=== PATIENT | female | born 1995 | race African-American/Black ===

== ENCOUNTER 2017-01-05 15:26 | Emergency (ER) | payer OTHER | END 2017-01-05 17:03 | disposition home or self-care (01) | LOC: FER 15:26 | DX: J02.9 Acute pharyngitis, unspecified (principal) | CPT/HCPCS: 87450; 99283 ==

== ENCOUNTER 2017-01-07 15:21 | Emergency (ER) | payer OTHER | END 2017-01-07 17:02 | disposition home or self-care (01) | LOC: FER 15:21 | DX: J35.1 Hypertrophy of tonsils (principal) | CPT/HCPCS: 86308; 87450; 87804; 87899; 99283 ==

== ENCOUNTER 2017-01-09 05:30 | Emergency (ER) | payer OTHER ==
[2017-01-09 06:21] LABS: BASOPHIL 0.2 % (0-2); EOSINOPHIL 0 % (0-5); HCT 35.3 % (37.0-47.0); HGB 11.9 g/dl (12.5-16.0); LYMPHOCYTE 16.5 % (15-48); MCHC 33.7 g/dL (32.0-36.0); MCV 77.2 fL (78.0-100.0); MONOCYTE 5.7 % (0-12); MPV 9.5 fL (6.0-9.5); NEUTROPHIL 77.6 % (41-80); PLT 262 K/uL (150-400); RBC 4.57 M/uL (4.20-5.40); WBC 10.3 K/uL (4.0-10.5)
[2017-01-09 06:39] LABS: CREATININE 0.6 mg/dL (0.5-1.0); POTASSIUM 4.3 mmol/L (3.5-5.1)
== END 2017-01-09 08:02 | disposition home or self-care (01) ==
LOC: FER 05:30
PROVIDERS: Emergency Medicine Emergency Medical Services
DX: J36 Peritonsillar abscess (principal); D64.9 Anemia, unspecified; J02.9 Acute pharyngitis, unspecified; E86.9 Volume depletion, unspecified
CPT/HCPCS: 36415; 70491; 80048; 85025; 87070; 87077; J1885; Q9967

== ENCOUNTER 2017-01-20 16:55 | Emergency (ER) | payer OTHER | END 2017-01-20 18:57 | disposition home or self-care (01) | LOC: FER 16:55 | DX: A54.9 Gonococcal infection, unspecified (principal) ==

== ENCOUNTER 2017-01-21 00:33 | Emergency (ER) | payer OTHER ==
[2017-01-21 01:31] LABS: AMPHETAMINES NEGATIVE (NEGATIVE); BARBITURATES NEGATIVE (NEGATIVE); BENZODIAZEPINES NEGATIVE (NEGATIVE); COCAINE NEGATIVE (NEGATIVE); MARIJUANA (THC) NEGATIVE (NEGATIVE); METHADONE NEGATIVE (NEGATIVE); TRICYCLIC ANTIDEPRESSANT NEGATIVE (NEGATIVE)
[2017-01-21 01:40] LABS: BASOPHIL 0.8 % (0-2); EOSINOPHIL 0.1 % (0-5); HGB 11.9 g/dl (12.5-16.0); LYMPHOCYTE 19.5 % (15-48); MCH 25.8 pg (25.0-31.0); MCHC 33.1 g/dL (32.0-36.0); MCV 78.1 fL (78.0-100.0); MONOCYTE 7.3 % (0-12); MPV 9.5 fL (6.0-9.5); NEUTROPHIL 72.3 % (41-80); PLT 260 K/uL (150-400); RBC 4.61 M/uL (4.20-5.40); RDW 15.7 % (11.5-14.0)
[2017-01-21 01:45] LABS: WBC 7.1 K/uL (4.0-10.5)
[2017-01-21 01:58] LABS: ALBUMIN 4.2 g/dL (3.5-5.0); BILIRUBIN - TOTAL 0.3 mg/dL (0.1-1.0); CREATININE 0.6 mg/dL (0.5-1.0); GLOBULIN (CALCULATION) 3.5 g/dL (2.2-4.2); POTASSIUM 3.8 mmol/L (3.5-5.1); TOTAL PROTEIN 7.7 g/dL (6.4-8.3)
[2017-01-21 01:59] LABS: ACETAMINOPHEN (TYLENOL) < 5.0 ug/mL (10.0-30.0); ALCOHOL (ETOH) MEDICAL NONE DETECTED; SALICYLATE < 6 ug/mL (0-300)
== END 2017-01-21 01:00 | disposition other institution (70) ==
LOC: FER 00:33
PROVIDERS: Emergency Medicine
DX: R45.851 Suicidal ideations (principal); Z91.5 Personal history of self-harm; Z81.8 Family history of other mental and behavioral disorders
CPT/HCPCS: 36415; 80053; 80305; 85025; G0480

== ENCOUNTER 2020-07-28 14:06 | Emergency (ER) | payer OTHER ==
[~2020-07-28 14:06] MED LIST: BACTRIM DS TAB1 EACH PO; NAPROXEN500 MG PO; PYRIDIUM100 MG PO; SKELAXIN800 MG PO
[2020-07-28 15:30] LABS: BILIRUBIN 1+ mg/dL (NEGATIVE); BLOOD TRACE-INTACT Ery/uL (NEGATIVE); CLARITY CLEAR (CLEAR); COLOR YELLOW (YELLOW); GLUCOSE (U) NORMAL (NORMAL); LEUKOCYTES NEGATIVE Leu/uL (NEGATIVE); NITRITE NEGATIVE (NEGATIVE); PROTEIN NEGATIVE (NEGATIVE); SPECIFIC GRAVITY >=1.030 (1.001-1.030); UROBILINOGEN 0.2 mg/dL (0.2-1.0)
[2020-07-28 15:38] LABS: BACTERIA TRACE; URINARY RBC RARE
[2020-07-28 16:03] LABS: BASOPHIL 0.4 % (0-2); EOSINOPHIL 0.4 % (0-5); HCT 37.7 % (37.0-47.0); HGB 11.6 g/dl (12.5-16.0); LYMPHOCYTE 32.4 % (15-48); MCH 25.2 pg (25.0-31.0); MCHC 30.8 g/dL (32.0-36.0); MCV 81.8 fL (78.0-100.0); MONOCYTE 9.6 % (0-12); MPV 9.8 fL (6.0-9.5); NRBC 0; PLT 201 K/uL (150-400); RBC 4.61 M/uL (4.20-5.40); RDW 15.4 % (11.5-14.0); WBC 5.1 K/uL (4.0-10.5)
[2020-07-28 16:26] LABS: ALBUMIN 3.3 g/dL (3.4-5.0); BILIRUBIN - TOTAL 0.3 mg/dL (0.2-1.0); BUN/CREAT RATIO (CALC) 11.5 RATIO; CREATININE 0.61 mg/dL (0.51-0.95); GLOBULIN (CALCULATION) 4.3 g/dL; POTASSIUM 3.6 mmol/L (3.5-5.1); TOTAL PROTEIN 7.6 g/dL (6.4-8.2)
== END 2020-07-28 19:17 | disposition home or self-care (01) ==
LOC: FER 14:06
PROVIDERS: Nurse Practitioner Family
DX: O26.891 Other specified pregnancy related conditions, first trimester (principal); R30.0 Dysuria; M54.5 Low back pain; O98.511 Other viral diseases complicating pregnancy, first trimester; U07.1 COVID-19; Z3A.01 Less than 8 weeks gestation of pregnancy
CPT/HCPCS: 36415; 80053; 81001; 84702; 85025; 86850; 86900; 86901; 99283; J7030

== ENCOUNTER 2021-03-14 16:48 | Inpatient (IN) | payer OTHER ==
[~2021-03-14] VITALS: Ht 154.9 cm; Wt 108.9 kg
[2021-03-14 18:04] LABS: BILIRUBIN NEGATIVE (NEGATIVE); BLOOD TRACE-INTACT Ery/uL (NEGATIVE); CLARITY CLEAR (CLEAR); COLOR YELLOW (YELLOW); GLUCOSE (U) NORMAL (NORMAL); LEUKOCYTES NEGATIVE Leu/uL (NEGATIVE); NITRITE NEGATIVE (NEGATIVE); PROTEIN NEGATIVE (NEGATIVE); SPECIFIC GRAVITY 1.025 (1.001-1.030)
[2021-03-14 18:14] LABS: URINARY WBC RARE
[2021-03-14 18:16] LABS: BACTERIA 1+
[2021-03-14 19:04] LABS: HCT 33.9 % (37.0-47.0); HGB 10.9 g/dl (12.5-16.0); MCH 26.4 pg (25.0-31.0); MCHC 32.2 g/dL (32.0-36.0); MCV 82.1 fL (78.0-100.0); MPV 10.2 fL (6.0-9.5); RBC 4.13 M/uL (4.20-5.40); WBC 9.1 K/uL (4.0-10.5)
[2021-03-16 07:59] LABS: BASOPHIL 0.3 % (0-2); EOSINOPHIL 1.7 % (0-5); HCT 30.7 % (37.0-47.0); HGB 9.9 g/dl (12.5-16.0); LYMPHOCYTE 26.5 % (15-48); MCH 26.8 pg (25.0-31.0); MCHC 32.2 g/dL (32.0-36.0); MONOCYTE 9.9 % (0-12); MPV 10.4 fL (6.0-9.5); NEUTROPHIL 60.8 % (41-80); NRBC 0; PLT 187 K/uL (150-400); RDW 17.2 % (11.5-14.0); WBC 8.8 K/uL (4.0-10.5)
[2021-03-16] MEDS ORDERED: FEOSOL325 MG PO (10:31)
[2021-03-16] MEDS ORDERED: MOTRIN600 MG PO (10:31)
[2021-03-16] MEDS ORDERED: COLACE100 MG PO (10:31)
[2021-03-16] MEDS ORDERED: PRENATAL FORMU1 EACH PO (10:31)
== END 2021-03-17 11:18 | disposition home or self-care (01) | DRG 806 ==
LOC: FOB 16:48
PROVIDERS: ADMIT Specialist
PROC: 10E0XZZ Delivery of Products of Conception, External Approach (ICD-10-PCS; principal; 2021-03-15)
PROC: 10H07YZ Insertion of Other Device into Products of Conception, Via Natural or Artificial Opening (ICD-10-PCS; 2021-03-15)
DX: O99.02 Anemia complicating childbirth (principal); D62 Acute posthemorrhagic anemia; Z37.0 Single live birth; O99.214 Obesity complicating childbirth; Z3A.39 39 weeks gestation of pregnancy
CPT/HCPCS: 36415; 81001; 85025; 86850; 86900; 86901; J3010; J7120; U0002

== ENCOUNTER 2021-04-11 20:55 | Emergency (ER) | payer OTHER ==
[~2021-04-11 20:55] MED LIST changes: +COLACE100 MG PO; +FEOSOL325 MG PO; +MOTRIN600 MG PO; +PRENATAL FORMU1 EACH PO
[2021-04-11 23:47] LABS: BASOPHIL 0.2 % (0-2); BILIRUBIN NEGATIVE (NEGATIVE); BLOOD NEGATIVE Ery/uL (NEGATIVE); CLARITY CLEAR (CLEAR); COLOR YELLOW (YELLOW); GLUCOSE (U) NORMAL (NORMAL); HCT 38.3 % (37.0-47.0); HGB 12.3 g/dl (12.5-16.0); LEUKOCYTES NEGATIVE Leu/uL (NEGATIVE); MCH 26.4 pg (25.0-31.0); MCHC 32.1 g/dL (32.0-36.0); MCV 82.2 fL (78.0-100.0); MONOCYTE 7.8 % (0-12); MPV 10.8 fL (6.0-9.5); NEUTROPHIL 66.6 % (41-80); NITRITE NEGATIVE (NEGATIVE); NRBC 0; PLT 205 K/uL (150-400); PROTEIN NEGATIVE (NEGATIVE); RBC 4.66 M/uL (4.20-5.40); RDW 15.4 % (11.5-14.0); SPECIFIC GRAVITY 1.015 (1.001-1.030); UROBILINOGEN 0.2 mg/dL (0.2-1.0); WBC 8.3 K/uL (4.0-10.5)
[2021-04-12 00:08] LABS: ALBUMIN 3.3 g/dL (3.4-5.0); BILIRUBIN - TOTAL 0.3 mg/dL (0.2-1.0); BUN/CREAT RATIO (CALC) 11.9 RATIO; CREATININE 0.67 mg/dL (0.51-0.95); GLOBULIN (CALCULATION) 3.7 g/dL; POTASSIUM 3.9 mmol/L (3.5-5.1)
[2021-04-12] MEDS ORDERED: PEPCID40 MG PO (00:26)
== END 2021-04-12 01:00 | disposition home or self-care (01) ==
LOC: FER 20:55
PROVIDERS: Internal Medicine
DX: K21.9 Gastro-esophageal reflux disease without esophagitis (principal); I10 Essential (primary) hypertension; Z91.041 Radiographic dye allergy status
CPT/HCPCS: 36415; 80053; 81003; 83690; 85025; C9113; J1170

== ENCOUNTER 2021-07-09 14:45 | Emergency (ER) | payer OTHER ==
[~2021-07-09 14:45] MED LIST changes: +PEPCID40 MG PO
[2021-07-09 18:38] LABS: BASOPHIL 0.3 % (0-2); EOSINOPHIL 0 % (0-5); HCT 40.9 % (37.0-47.0); MCH 26.5 pg (25.0-31.0); MCHC 31.8 g/dL (32.0-36.0); MCV 83.5 fL (78.0-100.0); MONOCYTE 6.3 % (0-12); MPV 9.3 fL (6.0-9.5); NRBC 0; PLT 221 K/uL (150-400); RDW 14.9 % (11.5-14.0); WBC 7.1 K/uL (4.0-10.5)
[2021-07-09 18:54] LABS: BUN/CREAT RATIO (CALC) 13.8 RATIO; CREATININE 0.58 mg/dL (0.51-0.95); POTASSIUM 3.5 mmol/L (3.5-5.1)
[2021-07-09] MEDS ORDERED: ONDANSETRON HCL4 MG PO (19:48)
[2021-07-10] MEDS ORDERED: K-TAB ER20 MEQ PO (12:45)
== END 2021-07-09 20:14 | disposition home or self-care (01) ==
LOC: FER 14:45
PROVIDERS: Nurse Practitioner Family
DX: R11.2 Nausea with vomiting, unspecified (principal); R19.7 Diarrhea, unspecified; Z20.822 Contact with and (suspected) exposure to COVID-19
CPT/HCPCS: 36415; 80048; 85025; J2405; J7030; U0002

== ENCOUNTER 2021-07-10 09:51 | Emergency (ER) | payer OTHER ==
[~2021-07-10 09:51] MED LIST changes: +ONDANSETRON HCL4 MG PO
[2021-07-10 11:20] LABS: BASOPHIL 0.2 % (0-2); EOSINOPHIL 0.2 % (0-5); HCT 39.4 % (37.0-47.0); HGB 12.5 g/dl (12.5-16.0); LYMPHOCYTE 27.2 % (15-48); MCH 26.8 pg (25.0-31.0); MCHC 31.7 g/dL (32.0-36.0); MCV 84.5 fL (78.0-100.0); MONOCYTE 10.4 % (0-12); MPV 9.1 fL (6.0-9.5); NEUTROPHIL 61.6 % (41-80); NRBC 0; PLT 206 K/uL (150-400); RBC 4.66 M/uL (4.20-5.40); RDW 14.9 % (11.5-14.0); WBC 4.8 K/uL (4.0-10.5)
[2021-07-10 11:51] LABS: ALBUMIN 3.4 g/dL (3.4-5.0); BILIRUBIN - TOTAL 0.2 mg/dL (0.2-1.0); BUN/CREAT RATIO (CALC) 7.5 RATIO; CREATININE 0.67 mg/dL (0.51-0.95); GLOBULIN (CALCULATION) 4.1 g/dL; POTASSIUM 3.3 mmol/L (3.5-5.1); TOTAL PROTEIN 7.5 g/dL (6.4-8.2)
[2021-07-10 12:31] LABS: BILIRUBIN NEGATIVE (NEGATIVE); BLOOD 1+ Ery/uL (NEGATIVE); CLARITY CLEAR (CLEAR); COLOR YELLOW (YELLOW); GLUCOSE (U) NORMAL (NORMAL); LEUKOCYTES NEGATIVE Leu/uL (NEGATIVE); NITRITE NEGATIVE (NEGATIVE); PROTEIN NEGATIVE (NEGATIVE); UROBILINOGEN 0.2 mg/dL (0.2-1.0)
[2021-07-10 12:34] LABS: AMPHETAMINES NEGATIVE (NEGATIVE); BARBITURATES NEGATIVE (NEGATIVE); ECSTASY (MDMA) NEGATIVE (NEGATIVE); MARIJUANA (THC) NEGATIVE (NEGATIVE); METHADONE NEGATIVE (NEGATIVE); OPIATES NEGATIVE (NEGATIVE); OXYCODONE NEGATIVE (NEGATIVE)
[2021-07-10 12:37] LABS: BACTERIA TRACE; URINARY RBC RARE; URINARY WBC RARE
[2021-07-10] MEDS ORDERED: K-TAB ER20 MEQ PO (12:45)
== END 2021-07-10 13:33 | disposition home or self-care (01) ==
LOC: FER 09:51
PROVIDERS: Emergency Medicine; Nurse Practitioner Family
DX: R07.89 Other chest pain (principal); E87.6 Hypokalemia; K21.9 Gastro-esophageal reflux disease without esophagitis; R19.7 Diarrhea, unspecified; J45.909 Unspecified asthma, uncomplicated
CPT/HCPCS: 36415; 71045; 80053; 80305; 81001; 84484; 85025; 93005; J1885; J7030

== ENCOUNTER 2022-04-02 18:14 | Emergency (ER) | payer OTHER ==
[~2022-04-02 18:14] MED LIST changes: +DIFLUCAN150 MG PO; +K-TAB ER20 MEQ PO
[2022-04-02 19:40] LABS: CORONAVIRUS 2019 SARS-COV-2 NEGATIVE (NEGATIVE); INFLUENZA A NAA NEGATIVE (NEGATIVE)
== END 2022-04-02 20:25 | disposition home or self-care (01) ==
LOC: FER 18:14
PROVIDERS: Nurse Practitioner Family
DX: B34.9 Viral infection, unspecified (principal); Z20.822 Contact with and (suspected) exposure to COVID-19
CPT/HCPCS: 99283; U0002